=== PATIENT | male | born 1950 | race Caucasian/White ===

== ENCOUNTER 2017-11-05 09:42 | Emergency (ER) | payer BC ==
--- NOTE | 2017-11-05 10:44 | XRAY Report ---
Procedure Date: 11/05/2017 Accession Number: [id number] / [id number] Procedure: XR - Knee 4 View RT CPT Code: FULL RESULT: EXAM: RIGHT KNEE RADIOGRAPHY 4 VIEWS EXAM DATE: 11/05/2017. CLINICAL HISTORY: Right knee pain after lifting an object 2 weeks ago. Right total knee replacement 6 years ago. COMPARISON: None. TECHNIQUE: AP, both oblique and lateral views. FINDINGS: Bones: Normal. No fractures or bone lesions. Joints: Right total knee prosthesis. No subluxation. Possible small effusion. Soft Tissues: Normal. No soft tissue swelling. IMPRESSION: Status post placement of a right total knee prosthesis. No fracture or subluxation. Possible small joint effusion. RADIA
--- NOTE | 2017-11-05 11:02 | ED Physician Documentation ---
PD HPI LOWER EXT INJURY - Stated complaint Stated Complaint: GLF/RT KNEE PX - Chief complaint Chief Complaint: Ext Problem - History obtained from History obtained from: Patient, Family (spouse) - History of Present Illness PD HPI LOW EXT INJURY LOCATION: Right, Knee Type of injury: Other (No specific injury) Timing - duration: Weeks (2) Timing - details: Gradual onset, Constant Worsened by: Moving, Palpating, Other (weight bearing) Associated symptoms: Swelling Similar symptoms before: Has not had sx before - Additional information Additional information: The patient is a 67-year-old male who is 6 years status post right total knee replacement, who presents with pain in his right knee. The pain started about 2 weeks ago after he was doing some heavy lifting. It has become progressively worse over the past 4 days, to the point of being unable to bear weight today. He denies fever, numbness or weakness. He denies history of similar symptoms in the past. Review of Systems Constitutional: denies: Fever Cardiac: denies: Chest pain / pressure Respiratory: denies: Dyspnea, Cough GI: denies: Abdominal Pain, Nausea, Vomiting : denies: Dysuria Skin: denies: Rash Musculoskeletal: reports: Joint pain (Right knee). denies: Back pain Neurologic: denies: Focal weakness, Numbness, Headache PD PAST MEDICAL HISTORY - Past Medical History Respiratory: None Endocrine/Autoimmune: None - Past Surgical History Ortho: Knee replacement - Present Medications Home Medications: Ambulatory Orders Medication Instructions Recorded Confirmed Aspirin 1 tab PO DAILY 11/05/17 11/05/17 Ibuprofen [Advil] 200 mg PO DAILY 11/05/17 11/05/17 traMADol [Ultram] 50 mg PO Q4-6H 11/05/17 11/05/17 - Allergies Allergies/Adverse Reactions: Allergies Allergy/AdvReac Type Severity Reaction Status Date / Time No Known Drug Allergies Allergy Verified 11/05/17 09:57 - Living Situation Living Situation: reports: With spouse/s.o. - Social History Does the pt smoke?: No PD ED PE NORMAL - Vitals Vital signs reviewed: Yes (Normal) - General General: Alert and oriented X 3, Well developed/nourished - HEENT HEENT: Atraumatic - Neck Neck: No adenopathy, No JVD - Cardiac Cardiac: RRR - Respiratory Respiratory: No respiratory distress, Clear bilaterally - Abdomen Abdomen: Soft, Non tender - Back Back: No CVA TTP - Derm Derm: No rash - Extremities Extremities: No edema, No calf tenderness / cord, Other (The right knee has an apparent effusion, with associated tenderness to palpation along the joint lines both laterally and medially. There is slight warmth, without erythema. Decreased range of motion secondary to pain.) - Neuro Neuro: Alert and oriented X 3, No motor deficit, No sensory deficit Results - Vitals Vitals: Vital Signs - 24 hr 11/05/17 11/05/17 09:53 16:18 Temperature 36.9 C 36.8 C Heart Rate 102 H 93 Respiratory 14 18 Rate Blood Pressure 105/68 131/76 H O2 Saturation 95 94 Oxygen O2 Source Room air - Labs Labs: Microbiology 11/05/17 12:30 Body Fluid Culture - Preliminary Synovial Fluid Laboratory Tests 11/05/17 11/05/17 11/05/17 12:30 12:30 12:55 WBC 14.7 H RBC 4.48 L Hgb 15.9 Hct 45.1 MCV 100.7 H MCH 35.5 H MCHC 35.2 RDW 12.6 Plt Count 135 MPV 9.4 Neut # (Auto) Not Reportable Lymph # (Auto) Not Reportable [place] # (Auto) Not Reportable Eos # (Auto) Not Reportable Baso # (Auto) Not Reportable Absolute Nucleated RBC Not Reportable Total Counted 100 Band Neuts % (Manual) 16 H Abnorm Lymph % (Manual) 0 Nucleated RBC % Not Reportable Neutrophils # (Manual) 13.5 H Lymphocytes # (Manual) 0.1 L Monocytes # (Manual) 1.0 Eosinophils # (Manual) 0.0 Basophils # (Manual) 0.0 Differential Comment MANUAL DIFFERENTIAL Manual Slide Review Indicated Platelet Estimate NORMAL (130-450,000) Platelet Morphology NORMAL APPEARANCE RBC Morph Micro Appear NORMAL APPEARANCE ESR Fluid Source SYNOVIAL Fluid Color BLOODY Fluid Clarity TURBID Fluid WBC Fluid RBC Fluid Neutrophils % 15 Fluid Lymphocytes % 4 Fluid Monocytes % 81 Fluid Crystals NONE SEEN 11/05/17 12:55 WBC RBC Hgb Hct MCV MCH MCHC RDW Plt Count MPV Neut # (Auto) Lymph # (Auto) [place] # (Auto) Eos # (Auto) Baso # (Auto) Absolute Nucleated RBC Total Counted Band Neuts % (Manual) Abnorm Lymph % (Manual) Nucleated RBC % Neutrophils # (Manual) Lymphocytes # (Manual) Monocytes # (Manual) Eosinophils # (Manual) Basophils # (Manual) Differential Comment Manual Slide Review Platelet Estimate Platelet Morphology RBC Morph Micro Appear ESR 12 Fluid Source Fluid Color Fluid Clarity Fluid WBC Fluid RBC Fluid Neutrophils % Fluid Lymphocytes % Fluid Monocytes % Fluid Crystals - Rads (name of study) Right knee Radiology: Prelim report reviewed, EMP read indepedently, See rad report ( Status post placement of a right total knee prosthesis. No fracture or subluxation. Possible small joint effusion.) Procedures - Arthrocentesis Joint: Knee Preparation: Consent obtained, Sterile prep and drape Anesthesia: Lidocaine 1% Fluid: Sent for cell count, Cloudy, Sent for crystals, Sent for culture, Fluid obtained - cc (60), Sent for glucose, Sent for gram stain, Purulent, Sent for protein Aftercare: Dressing applied, No complications, Patient tolerated well PD MEDICAL DECISION MAKING - ED course Complexity details: reviewed results, re-evaluated patient, considered differential, d/w patient, d/w family, d/w computer consultant ED course: The patient's presentation is significant for septic knee with a prosthetic joint. Arthrocentesis reveals extremely cloudy synovial fluid which is positive for gram-positive cocci. Culture and sensitivity are pending. Cell count reveals many WBCs and many RBCs although the specimen was clotted so an accurate cell count could not be obtained. The differential is 15% neutrophils and 81% monocytes. No crystals. Serum white blood cell count is elevated at 14.7. Treatment in the emergency department included administration of ceftriaxone 1 g IV, and normal saline 1 L IV. I discussed the patient's condition with Dr. Lopez who is on-call for orthopedic surgery. He advises the patient should be transferred to a facility with a higher level of orthopedic care because he will probably need a replacement of his prosthetic joint. I discussed his condition with Dr. Arguello at [facility], and he will accept the patient in transfer. The patient is being transported by [facility]. Transfer forms were completed. - Sepsis Event Vital Signs: Vital Signs - 24 hr 11/05/17 11/05/17 09:53 16:18 Temperature 36.9 C 36.8 C Heart Rate 102 H 93 Respiratory 14 18 Rate Blood Pressure 105/68 131/76 H O2 Saturation 95 94 Oxygen O2 Source Room air Departure - Departure Disposition: 02 Transfer Acute Care Hosp Clinical Impression: Septic arthritis of knee, right Qualifiers: Septic arthritis organism: due to unspecified organism Qualified Code(s): M00.9 - Pyogenic arthritis, unspecified Condition: Stable
[2017-11-05] MEDS ORDERED: LIDOCAINE 1%-EPI 1:100000 30 ML MDV SUBQ STA (11:56)
[2017-11-05] MEDS ORDERED: cefTRIAXone 1 GM in SODIUM CHLORIDE 0.9% MINIBAG 100 ML IV STA (12:40)
[2017-11-05] MEDS ORDERED: SODIUM CHLORIDE 0.9% 1,000 ML IV ONE (12:40)
[2017-11-05 13:19] LABS: BASOPHILS % (AUTO) 0.1 %; HGB - HEMOGLOBIN 15.9 g/dL (14.0-18.0); LYMPHOCYTES % (AUTO) 1.5 %; MEAN CORPUSCULAR HEMOGLOBIN 35.5 pg (27.0-31.0); MEAN CORPUSCULAR HGB CONC 35.2 g/dL (32.0-36.0); MEAN CORPUSCULAR VOLUME 100.7 fL (80.0-94.0); MEAN PLATELET VOLUME 9.4 fL (7.4-11.4); MONOCYTES % (AUTO) 7.1 %; NEUTROPHILS % (AUTO) 91.3 %; PLT - PLATELET COUNT 135 10^3/uL (130-450); RED BLOOD COUNT 4.48 10^6/uL (4.70-6.10); RED CELL DISTRIBUTION WIDTH 12.6 % (12.0-15.0); WHITE BLOOD COUNT 14.7 x10^3/uL (4.8-10.8)
[2017-11-05 13:46] LABS: ABNORMAL LYMPHS % (MANUAL) 0 %; BAND NEUTROPHILS % (MANUAL) 16 %; LYMPHOCYTES # (MANUAL) 0.1 10^3/uL (1.5-3.5); LYMPHOCYTES % (MANUAL) 1 %; NEUTROPHILS # (MANUAL) 13.5 10^3/uL (1.5-6.6); NEUTROPHILS % (MANUAL) 76 %
[2017-11-05 13:47] LABS: DIFFERENTIAL COMMENT MANUAL DIFFERENTIAL; PLATELET ESTIMATE, MANUAL NORMAL (130-450,000) (NORMAL); PLATELET MORPHOLOGY NORMAL APPEARANCE (NORMAL); RBC MORPHOLOGY (MULTIPLE) NORMAL APPEARANCE (NORMAL)
[2017-11-05 15:17] LABS: LYMPHOCYTES %,BODY FLUID 4; MONOCYTES %,BODY FLUID 81 %
[2017-11-05 15:18] LABS: BF COLOR BLOODY; BF SOURCE SYNOVIAL
[2017-11-05 16:19] VITALS: BP 131/76
== END 2017-11-05 16:59 | disposition short-term general hospital (02) ==
LOC: ED 09:42
DX: M00.9 Pyogenic arthritis, unspecified (principal); Z79.82 Long term (current) use of aspirin; Z79.1 Long term (current) use of non-steroidal anti-inflammatories (NSAID)
CPT/HCPCS: 20610; 36415; 81599; 82945; 84157; 85025; 85651; 87070; 87181; 87205; 89051; 89060; 96365; 96366; 99283; 99284

== ENCOUNTER 2017-11-05 17:04 | Outpatient (CLI) | payer MEDICARE | END 2017-11-05 17:05 | disposition short-term general hospital (02) | LOC: EMS 17:04 | PROVIDERS: ATTEND Surgery | DX: T84.53XA Infection and inflammatory reaction due to internal right knee prosthesis, initial encounter (principal) ==

== ENCOUNTER 2017-11-18 15:43 | Outpatient (CLI) | payer MEDICARE ==
[2017-11-18 16:25] LABS: BASOPHILS # (AUTO) 0.1 10^3/uL (0.0-0.1); BASOPHILS % (AUTO) 0.4 %; EOSINOPHILS # (AUTO) 0.1 10^3/uL (0.0-0.7); EOSINOPHILS % (AUTO) 0.7 %; HGB - HEMOGLOBIN 12.3 g/dL (14.0-18.0); LYMPHOCYTES # (AUTO) 1.9 10^3/uL (1.5-3.5); LYMPHOCYTES % (AUTO) 16.4 %; MEAN CORPUSCULAR HEMOGLOBIN 34.6 pg (27.0-31.0); MEAN CORPUSCULAR HGB CONC 35.3 g/dL (32.0-36.0); MEAN CORPUSCULAR VOLUME 98.1 fL (80.0-94.0); MEAN PLATELET VOLUME 7.5 fL (7.4-11.4); MONOCYTES # (AUTO) 1.3 10^3/uL (0.0-1.0); MONOCYTES % (AUTO) 11.1 %; NEUTROPHILS # (AUTO) 8.3 10^3/uL (1.5-6.6); NEUTROPHILS % (AUTO) 71.4 %; PLT - PLATELET COUNT 678 10^3/uL (130-450); RED BLOOD COUNT 3.55 10^6/uL (4.70-6.10); RED CELL DISTRIBUTION WIDTH 12.4 % (12.0-15.0); WHITE BLOOD COUNT 11.7 x10^3/uL (4.8-10.8)
[2017-11-18 16:36] LABS: CALCIUM 9.1 mg/dL (8.5-10.3); CREATININE 0.8 mg/dL (0.6-1.2); CRP - C-REACTIVE PROTEIN 11.7 mg/dL (0-1.0)
== END 2017-11-18 15:44 | disposition home or self-care (01) ==
LOC: LAB.R 15:43
DX: G93.40 Encephalopathy, unspecified (principal); R70.0 Elevated erythrocyte sedimentation rate; R74.0 Nonspecific elevation of levels of transaminase and lactic acid dehydrogenase [LDH]; M01.X61 Direct infection of right knee in infectious and parasitic diseases classified elsewhere
CPT/HCPCS: 80048; 84450; 84460; 85025; 85651; 86140

== ENCOUNTER 2017-11-24 12:05 | Outpatient (CLI) | payer MEDICARE ==
[2017-11-24 12:45] LABS: BASOPHILS # (AUTO) 0.1 10^3/uL (0.0-0.1); BASOPHILS % (AUTO) 1.2 %; EOSINOPHILS # (AUTO) 0.2 10^3/uL (0.0-0.7); EOSINOPHILS % (AUTO) 2.1 %; HGB - HEMOGLOBIN 13.5 g/dL (14.0-18.0); LYMPHOCYTES # (AUTO) 2.5 10^3/uL (1.5-3.5); LYMPHOCYTES % (AUTO) 27.4 %; MEAN CORPUSCULAR HGB CONC 35.4 g/dL (32.0-36.0); MEAN PLATELET VOLUME 7.2 fL (7.4-11.4); MONOCYTES # (AUTO) 1.1 10^3/uL (0.0-1.0); MONOCYTES % (AUTO) 12.1 %; NEUTROPHILS # (AUTO) 5.3 10^3/uL (1.5-6.6); NEUTROPHILS % (AUTO) 57.2 %; PLT - PLATELET COUNT 578 10^3/uL (130-450); RED BLOOD COUNT 3.98 10^6/uL (4.70-6.10); RED CELL DISTRIBUTION WIDTH 12.2 % (12.0-15.0); WHITE BLOOD COUNT 9.3 x10^3/uL (4.8-10.8)
[2017-11-24 13:00] LABS: CALCIUM 9.6 mg/dL (8.5-10.3); CREATININE 0.8 mg/dL (0.6-1.2); CRP - C-REACTIVE PROTEIN 4.4 mg/dL (0-1.0)
== END 2017-11-24 12:06 | disposition home or self-care (01) ==
LOC: LAB.R 12:05
PROVIDERS: ATTEND Family Medicine
DX: M01.X61 Direct infection of right knee in infectious and parasitic diseases classified elsewhere (principal); G93.40 Encephalopathy, unspecified; D64.9 Anemia, unspecified; R79.82 Elevated C-reactive protein (CRP)
CPT/HCPCS: 80048; 84450; 84460; 85025; 85651; 86140

== ENCOUNTER 2017-12-01 08:00 | Outpatient (CLI) | payer MEDICARE ==
[2017-12-01 07:19] LABS: BASOPHILS # (AUTO) 0.1 10^3/uL (0.0-0.1); EOSINOPHILS # (AUTO) 0.6 10^3/uL (0.0-0.7); EOSINOPHILS % (AUTO) 6.1 %; HGB - HEMOGLOBIN 11.6 g/dL (14.0-18.0); LYMPHOCYTES # (AUTO) 2.9 10^3/uL (1.5-3.5); LYMPHOCYTES % (AUTO) 29.4 %; MEAN CORPUSCULAR VOLUME 97.1 fL (80.0-94.0); MEAN PLATELET VOLUME 7.7 fL (7.4-11.4); MONOCYTES # (AUTO) 1.1 10^3/uL (0.0-1.0); MONOCYTES % (AUTO) 11.6 %; NEUTROPHILS # (AUTO) 5.1 10^3/uL (1.5-6.6); NEUTROPHILS % (AUTO) 51.9 %; PLT - PLATELET COUNT 344 10^3/uL (130-450); RED BLOOD COUNT 3.51 10^6/uL (4.70-6.10); RED CELL DISTRIBUTION WIDTH 12.1 % (12.0-15.0); WHITE BLOOD COUNT 9.9 x10^3/uL (4.8-10.8)
[2017-12-01 07:28] LABS: ALT ALANINE AMINOTRANSFERASE < 10 IU/L (10-60); AST ASPARTATE AMINOTRANSFERASE 18 IU/L (10-42); BUN - BLOOD UREA NITROGEN 14 mg/dL (6-20); CALCIUM 8.8 mg/dL (8.5-10.3); CARBON DIOXIDE - CO2 28 mmol/L (21-32); CHLORIDE 102 mmol/L (101-111); CREATININE 0.7 mg/dL (0.6-1.2); GFR - MDRD 113 (>89); GLUCOSE 83 mg/dL (70-100); SODIUM 137 mmol/L (135-145)
[2017-12-01 07:32] LABS: CRP - C-REACTIVE PROTEIN < 1.0 mg/dL (0-1.0)
== END 2017-12-01 08:01 | disposition home or self-care (01) ==
LOC: LAB.R 08:00
DX: M00.9 Pyogenic arthritis, unspecified (principal); T84.53XD Infection and inflammatory reaction due to internal right knee prosthesis, subsequent encounter
CPT/HCPCS: 80048; 84450; 84460; 85025; 85651; 86140

== ENCOUNTER 2018-01-13 10:16 | Outpatient (CLI) | payer BC, MEDICARE, OTHER | END 2018-01-13 10:17 | disposition home or self-care (01) | LOC: LAB 10:16 | PROVIDERS: ATTEND Internal Medicine | DX: M00.061 Staphylococcal arthritis, right knee (principal) | CPT/HCPCS: 36415; 85651; 86140 ==

== ENCOUNTER 2018-07-15 11:03 | Outpatient (CLI) | payer MEDICARE ==
[2018-07-15 11:41] LABS: CRP - C-REACTIVE PROTEIN 6.4 mg/dL (0-1.0)
[2018-07-15 11:47] LABS: URIC ACID 5.3 mg/dL (2.6-7.2)
== END 2018-07-15 11:04 | disposition home or self-care (01) ==
LOC: LAB 11:03
PROVIDERS: ATTEND Internal Medicine
DX: M25.569 Pain in unspecified knee (principal); T84.50XD Infection and inflammatory reaction due to unspecified internal joint prosthesis, subsequent encounter
CPT/HCPCS: 36415; 84550; 85651; 86140

== ENCOUNTER 2018-12-19 09:48 | Outpatient (CLI) | payer MEDICARE ==
[2018-12-19 18:38] LABS: BASOPHILS % (AUTO) 0.3 %; EOSINOPHILS # (AUTO) 0.1 10^3/uL (0.0-0.7); EOSINOPHILS % (AUTO) 0.9 %; HGB - HEMOGLOBIN 15.3 g/dL (14.0-18.0); LYMPHOCYTES # (AUTO) 1.8 10^3/uL (1.5-3.5); LYMPHOCYTES % (AUTO) 15.2 %; MEAN CORPUSCULAR HEMOGLOBIN 29.5 pg (27.0-31.0); MEAN CORPUSCULAR HGB CONC 31.2 g/dL (32.0-36.0); MEAN CORPUSCULAR VOLUME 94.8 fL (80.0-94.0); MEAN PLATELET VOLUME 10.7 fL (7.4-11.4); MONOCYTES # (AUTO) 1.5 10^3/uL (0.0-1.0); MONOCYTES % (AUTO) 12.6 %; NEUTROPHILS # (AUTO) 8.2 10^3/uL (1.5-6.6); NEUTROPHILS % (AUTO) 70.7 %; PLT - PLATELET COUNT 250 10^3/uL (130-450); RED BLOOD COUNT 5.18 10^6/uL (4.70-6.10); RED CELL DISTRIBUTION WIDTH 13.3 % (12.0-15.0); WHITE BLOOD COUNT 11.6 x10^3/uL (4.8-10.8)
== END 2018-12-19 09:49 | disposition home or self-care (01) ==
LOC: LAB.S 09:48
PROVIDERS: ATTEND Internal Medicine Infectious Disease
DX: T84.59XD Infection and inflammatory reaction due to other internal joint prosthesis, subsequent encounter (principal); Z96.659 Presence of unspecified artificial knee joint
CPT/HCPCS: 36415; 85025; 85651; 86140

== ENCOUNTER 2018-12-28 09:53 | Outpatient (CLI) | payer MEDICARE ==
[2018-12-28 17:36] LABS: BASOPHILS % (AUTO) 0.5 %; EOSINOPHILS # (AUTO) 0.2 10^3/uL (0.0-0.7); EOSINOPHILS % (AUTO) 2.1 %; HGB - HEMOGLOBIN 14.9 g/dL (14.0-18.0); LYMPHOCYTES # (AUTO) 2.1 10^3/uL (1.5-3.5); LYMPHOCYTES % (AUTO) 26.6 %; MEAN CORPUSCULAR HEMOGLOBIN 30.1 pg (27.0-31.0); MEAN CORPUSCULAR HGB CONC 33.2 g/dL (32.0-36.0); MEAN CORPUSCULAR VOLUME 90.7 fL (80.0-94.0); MEAN PLATELET VOLUME 10.2 fL (7.4-11.4); MONOCYTES # (AUTO) 0.8 10^3/uL (0.0-1.0); MONOCYTES % (AUTO) 10.3 %; NEUTROPHILS # (AUTO) 4.8 10^3/uL (1.5-6.6); PLT - PLATELET COUNT 248 10^3/uL (130-450); RED BLOOD COUNT 4.95 10^6/uL (4.70-6.10); RED CELL DISTRIBUTION WIDTH 12.4 % (12.0-15.0); WHITE BLOOD COUNT 8.1 x10^3/uL (4.8-10.8)
== END 2018-12-28 09:54 | disposition home or self-care (01) ==
LOC: LAB.S 09:53
PROVIDERS: ATTEND Internal Medicine Infectious Disease
DX: T84.59XD Infection and inflammatory reaction due to other internal joint prosthesis, subsequent encounter (principal); Z96.659 Presence of unspecified artificial knee joint
CPT/HCPCS: 36415; 85025; 85651; 86140

== ENCOUNTER 2023-07-03 17:38 | Outpatient (CLI) | payer MEDICARE | END 2023-07-03 23:59 | disposition short-term general hospital (02) | LOC: EMS 17:38 | DX: R41.0 Disorientation, unspecified (principal); R06.89 Other abnormalities of breathing; R46.89 Other symptoms and signs involving appearance and behavior; S01.81XA Laceration without foreign body of other part of head, initial encounter; W10.8XXA Fall (on) (from) other stairs and steps, initial encounter; Y92.008 Other place in unspecified non-institutional (private) residence as the place of occurrence of the external cause | CPT/HCPCS: A0425; A0427 ==

== ENCOUNTER 2023-07-04 10:16 | Emergency (ER) | payer MEDICARE ==
[2023-07-04 10:52] VITALS: BP 130/72; O2SAT 100
--- NOTE | 2023-07-04 11:04 | ED Physician Documentation ---
PD HPI HEAD INJURY - Stated complaint Stated Complaint: HEAD INJ - Chief complaint Chief Complaint: Wound - History obtained from History obtained from: Patient - History of Present Illness Mechanism of head injury: Fell (fell down steps) Where head injury occurred: Home (he fell yesterday down stairs at home, with LOC/concussion (altered) and scalp lac. Lifeflight to [facility] and had normal dscalps, scalp stapled and discharged. Overnight most of the elina pulled out with restless tossing sleep. Wound opened. Here for wound repair.) Location of injury: Right, Top PD PAST MEDICAL HISTORY - Past Medical History Past Medical History: Yes Cardiovascular: None Respiratory: None Neuro: None Endocrine/Autoimmune: None GI: None : None HEENT: None Psych: None Musculoskeletal: Osteoporosis Derm: None - Past Surgical History Past Surgical History: Yes Ortho: Knee replacement, Other HEENT: Tonsil/Adenoidectomy - Present Medications Home Medications: Ambulatory Orders Medication Instructions Recorded Confirmed Aspirin 1 tab PO DAILY 11/05/17 12/08/17 Ibuprofen [Advil] 200 mg PO DAILY 11/05/17 12/08/17 traMADol [Ultram] 50 mg PO Q4-6H 11/05/17 12/08/17 Cefazolin Sodium in 0.9 % NaCl 2 gm IV Q8HR 12/08/17 12/08/17 [Cefazolin 2 G/50 ml-0.9% NaCl] - Allergies Allergies/Adverse Reactions: Allergies Allergy/AdvReac Type Severity Reaction Status Date / Time No Known Drug Allergies Allergy Verified 07/04/23 10:38 - Social History Does the pt smoke?: No Smoking Status: Never smoker Does the pt drink ETOH?: Yes Does the pt have substance abuse?: Yes - Immunizations Immunizations are current?: Yes - POLST Patient has POLST: No PD ED PE NORMAL - Vitals Vital signs reviewed: Yes - General General: Alert and oriented X 3, No acute distress (he and state he is acting okay today without persistent concussive symptoms. ), Well developed/nourished - HEENT HEENT: Other (right posterior parietal area with open scalp wound to fatty tissue without FB nor active bleeding. No signs of infection. Wound 6.5 cm long nad jagged. ) - Derm Derm: Normal color, Warm and dry - Neuro Neuro: Alert and oriented X 3, No motor deficit, No sensory deficit, Normal speech Results - Vitals Vitals: Vital Signs - 24 hr 07/04/23 10:34 Temperature 36.4 C L Heart Rate 56 L Respiratory 20 Rate Blood Pressure 130/72 O2 Saturation 100 Oxygen O2 Source Room air Procedures - Laceration (location) scalp Length in cm: 6.5 Wound type: Curved, Into subcut fat Anesthesia: Lidocaine 1% with epi Skin layer closure: Nylon, Running, Size #-0 - enter number (4), Sutures - enter # (14) Other: Patient tolerated well, No complications, Neurovascular intact PD Medical Decision Making - ED course Complexity details: considered differential ( has discharge instructions from [facility] and their report of findings was congruent, so I did not request recrods. He is having normal mentation at this time. Seems reasonable to just reclose the wound. Early enough and was closed initially, so I feel infection risk is low. ), d/w patient Departure - Departure Disposition: 01 Home, Self Care Clinical Impression: Scalp laceration Condition: Stable Record reviewed to determine appropriate education?: Yes Instructions: ED Laceration All Follow-Up: DEBBY ROCHA MD [Primary Care Provider] - Comments: It is okay to wash and shower. Clean off the wound twice a day with soap and water, or peroxide and water. Apply some antibiotic ointment to it to keep it moist. Also to watch for signs of infection such as purulence, redness or increasing pain. Return to your primary care or the ER at the specified time for suture removal. Suture removal 10 to 14 days. Forms: PCP List Discharge Date/Time: 07/04/23 11:38
== END 2023-07-04 11:38 | disposition home or self-care (01) ==
LOC: ED 10:16
DX: S01.01XA Laceration without foreign body of scalp, initial encounter (principal); W10.9XXA Fall (on) (from) unspecified stairs and steps, initial encounter; Y92.009 Unspecified place in unspecified non-institutional (private) residence as the place of occurrence of the external cause; Z79.82 Long term (current) use of aspirin; Z79.899 Other long term (current) drug therapy
CPT/HCPCS: 12002; 99283